=== PATIENT | male | born 2000 | race Caucasian/White ===

== ENCOUNTER 2021-10-02 17:56 | Emergency (ER) | payer SELFPAY ==
[~2021-10-02] VITALS: Ht 177.8 cm; Wt 102.1 kg
[2021-10-02] MEDS ORDERED: PREDNISONE20 MG PO (19:08)
[2021-10-02] MEDS ORDERED: VENTOLIN HFA18 GM INH (19:08)
[2021-10-02] MEDS ORDERED: AZITHROMYCIN250 MG PO (19:08)
== END 2021-10-02 19:48 | disposition home or self-care (01) ==
LOC: ER 17:58
DX: J06.9 Acute upper respiratory infection, unspecified (principal); R05.9 Cough, unspecified; F17.210 Nicotine dependence, cigarettes, uncomplicated
CPT/HCPCS: 71045; 93005; 99283